=== PATIENT | male | born 1990 | race Caucasian/White ===

== ENCOUNTER 2018-02-19 06:31 | Day surgery (SDC) | payer MEDICARE ==
[~2018-02-19 06:31] MED LIST: Lactated Ringers 1,000 ML IV SCH; Sensorcaine 0.25% 10 ML ONE
[2018-02-19] MEDS ORDERED: Zemuron 100 MG/10 ML IJ ONE (06:32)
[2018-02-19] MEDS ORDERED: BRIDION 200MG/2ML IV ONE (06:32)
[2018-02-19] MEDS ORDERED: SUBLIMAZE 250 MCG/5 ML IV ONE (06:32)
[2018-02-19] MEDS ORDERED: Zofran 4 MG/2 ML VIAL IV ONE (06:32)
[2018-02-19] MEDS ORDERED: DIPRIVAN 200 MG/20 ML IV ONE (06:32)
[2018-02-19] MEDS ORDERED: Versed 2 MG/2 ML Injection IV ONE (06:32)
[2018-02-19] MEDS ORDERED: Quelicin Fliptop 200 MG/10 ML IJ ONE (06:32)
[2018-02-19] MEDS ORDERED: Lactated Ringers 1,000 ML IV ONE (06:46)
[2018-02-19] MEDS ORDERED: MEFOXIN 2 GM PREMIX** 2 GM/50 ML ML IV ONE (06:46)
[2018-02-19] MEDS ORDERED: MEFOXIN 2 GM PREMIX** 2 GM/50 ML ML IV SCH (07:00)
[2018-02-19] MEDS ORDERED: DILAUDID 2 MG INJECTION ONE (11:28)
[2018-02-19] MEDS ORDERED: SUBLIMAZE 100 MCG/2 ML ONE (11:33)
[2018-02-19 12:37] VITALS: BP 147/85; PULSE 70; O2SAT 95
--- NOTE | 2018-02-19 13:05 | OP ---
SURGERY DATE/TIME: 02/19/2018 0953 PREOPERATIVE DIAGNOSIS: Symptomatic cholelithiasis. POSTOPERATIVE DIAGNOSIS: Symptomatic cholelithiasis. PROCEDURE: Laparoscopic cholecystectomy. SURGEON: Dr. Roque. ANESTHESIA: General endotracheal tube. ESTIMATED BLOOD LOSS: Minimal. COMPLICATIONS: None. CONDITION: Stable. INDICATIONS: A patient with upper abdominal pain. Ultrasound positive. Seen and examined. The procedure discussed in detail. The patient is very interested. 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 He certainly is bound to have fairly treacherous case and he is aware of this. DESCRIPTION OF PROCEDURE AND FINDINGS: He is taken to surgery. General anesthetic, routine prep and drape. Veress needle left upper quadrant. 5 port in left upper quadrant. Adhesions in the midline taken down. The SLAG EXPANDER shunt identified. It was fairly small tubing. It was adhesed up with the omentum and adhesions and it was able to be visualized and it hung totally free down into the belly at the termination of the procedure. What was the most troubling was that the omentum actually swept over top of the liver and this required total mobilization and then the hepatic flexure was stuck up above the liver and this required total mobilization. After mobilizing 45 minutes to an hour of adhesion, the gallbladder upper edge was visible. At this time the fundus was picked up. Infundibulum inspected. Cystic duct defined. Cystic duct triply clipped. Cystic artery triply clipped. Gallbladder rolled out of gallbladder fossa. The gallbladder delivered through right upper quadrant port. A hole closure device was used. The field irrigated and suctioned and totally dry. The SLAG EXPANDER shunt was hanging down in the lower abdomen with no suspicion of any issue. The field of adhesiolysis totally dry. The hepatic flexure of the colon transected and totally satisfactory with no suggestion of any pending or impending issues. Skin closed with capri. Sterile dressing applied. The patient tolerated the procedure satisfactorily. Findings discussed with the family in the waiting room.
== END 2018-02-19 12:50 | disposition home or self-care (01) ==
LOC: SDC 06:31
PROVIDERS: ATTEND Surgery
DX: K80.20 Calculus of gallbladder without cholecystitis without obstruction (principal)
CPT/HCPCS: 88304; 94250; J0330; J0694; J1170; J2250; J2405; J2704; J3010

== ENCOUNTER 2019-02-13 17:08 | Emergency (ER) | payer MEDICARE ==
[2019-02-13 17:31] VITALS: O2SAT 97
[2019-02-13] MEDS ORDERED: XYLOCAINE 1% HCL 20 ML MDV IJ ONE (18:19)
[2019-02-13] MEDS ORDERED: Adacel Vial IM ONE ×2 (18:19→19:28)
--- NOTE | 2019-02-13 18:24 | ERPHSYRPT ---
- History of Present Illness Time Seen by Provider: 02/13/19 18:17 Source: patient Exam Limitations: no limitations Patient Subjective Stated Complaint: pt here for a catfish horn in left hand Triage Nursing Assessment: pt alert, walked in,resp easy, skin w/d/p. has catfish horm to left hand, no bleeding or swelling ntoed Physician History: 28-year-old white male arrives with complaint of a catfish bar stuck in his left hand since one hour prior to arrival. Patient states he was fishing and got a catfish bev stuck in his hand he was unable to pull it out. Past medical history includes left foot ulcer, spina bifida Past surgical history includes cholecystectomy stent in his head bladder surgery sohe can self catheterize. Occurred: just prior to arrival (one hour ago) Method of Injury: other (catfish bev embedded in right hand) Quality: constant Severity of Pain-Max: moderate Severity of Pain-Current: moderate (And) Extremities Pain Location: hand: left Modifying Factors: Improves With: nothing Associated Symptoms: none Allergies/Adverse Reactions: ciprofloxacin [From Cipro] Allergy (Verified 02/13/19 17:32) daptomycin [From Cubicin] Allergy (Verified 02/13/19 17:32) Latex, Natural Rubber Allergy (Verified 02/13/19 17:32) Hx Tetanus, Diphtheria Vaccination/Date Given: No Hx Influenza Vaccination/Date Given: No Hx Pneumococcal Vaccination/Date Given: No Immunizations Up to Date: Yes - Review of Systems Constitutional: No Fever, No Chills Eyes: No Symptoms Ears, Nose, & Throat: No Symptoms Respiratory: No Cough, No Dyspnea Cardiac: No Chest Pain, No Edema, No Syncope Abdominal/Gastrointestinal: No Abdominal Pain, No Nausea, No Vomiting, No Diarrhea Genitourinary Symptoms: No Dysuria Musculoskeletal: Other (catfish bev embedded in left hand) Skin: Other (catfish bev embedded in left hand), No Rash Neurological: No Dizziness, No Focal Weakness, No Sensory Changes Psychological: No Symptoms Endocrine: No Symptoms All Other Systems: Reviewed and Negative - Past Medical History Pertinent Past Medical History: Yes Other Medical History: ulcer in left foot, binafida - Past Surgical History Past Surgical History: Yes Gastrointestinal: Cholecystectomy Genitourinary: Other Other Surgical History: shunt placed in head, feet, bladder surgery to self cath - Social History Smoking Status: Never smoker Exposure to second hand smoke: Yes Drug Use: none Patient Lives Alone: No - Nursing Vital Signs Nursing Vital Signs: Initial Vital Signs Temperature 97.5 F 02/13/19 17:24 Pulse Rate 77 02/13/19 17:24 Respiratory Rate 18 02/13/19 17:24 Blood Pressure 152/95 02/13/19 17:24 O2 Sat by Pulse Oximetry 97 02/13/19 17:24 Pain Scale Pain Intensity 5 - Physical Exam General Appearance: mild distress, alert Eyes, Ears, Nose, Throat Exam: moist mucous membranes Neck Exam: non-tender, supple Cardiovascular/Respiratory Exam: chest non-tender, normal breath sounds, regular rate/rhythm, no respiratory distress Abdominal Exam: non-tender, No guarding Back Exam: normal inspection, No vertebral tenderness Shoulder Exam: normal inspection, no evidence of injury, normal ROM Elbow/Forearm Exam: normal inspection, non-tender, no evidence of injury, normal ROM Wrist Exam: normal inspection, non-tender, no evidence of injury, normal ROM Hand Exam: normal ROM, No normal inspection (lleft hand with catfish bev embedded in dorsal left handproximal to left thumb and forefinger) Neuro/Tendon Exam: normal sensation, normal motor functions Mental Status Exam: alert, oriented x 3, cooperative Skin Exam: other (catfish bev embedded in thenar eminence left hand) SpO2 Interpretation: normal (97%) SpO2: 97 Ordered Tests: Active Orders 24 hr Category Date Time Status Wound Care STAT Care 02/13/19 18:19 Active Medication Summary Discontinued Medications Generic Name Dose Route Start Last Admin Trade Name Freq PRN Reason Stop Dose Admin Diphtheria/Tetanus/Acell Pertussis 0.5 ml 02/13/19 18:19 02/13/19 19:31 Adacel Vial IM 02/13/19 18:20 0.5 ml .ONCE ONE Administration Diphtheria/Tetanus/Acell Pertussis Confirm 02/13/19 19:28 Adacel Vial Administered 02/13/19 19:29 Dose 0.5 ml IM .STK-MED ONE Lidocaine HCl 5 ml 02/13/19 18:19 02/13/19 19:33 Xylocaine 1% Hcl 20 Ml Mdv IJ 02/13/19 18:20 5 ml STAT ONE Administration Lidocaine HCl Confirm 02/13/19 19:28 Xylocaine 1% Hcl 20 Ml Mdv Administered 02/13/19 19:29 Dose 5 ml .ROUTE .STK-MED ONE - Progress Progress: improved Progress Note: 02/13/19 19:39 Removal of foreign body (catfish bev) Dorsal left hand. Left hand sterilely cleansed. 1% lidocaine used to anesthetize the area. Bev removed with curved hemostats. Forceps used to explore lesion no further foreign bodies noted. Area irrigated by the nurse. Bacitracin is applied. Patient's left hand neurovascular intact after removal. - Departure Departure Disposition: Home Clinical Impression: remove catfish bev left hand Condition: Fair Critical Care Time: No Referrals: REZA MCCORMICK [Primary Care Provider] - Additional Instructions: Return home. Keflex 500 mg orally 4 times a day x7 days. [facility] as needed for pain. Followup with your family doctor if signs of infection or problems. Return for acute distress severe symptoms or for any problems. Prescriptions: Hydrocodone/APAP 5-325 Tab^^^ [[facility] 5-325 Tablet^^^] 1 tab PO Q6HPRN PRN #10 tablet MDD 6 PRN Reason: Pain Cephalexin Mh 500 mg [Keflex 500 mg] 500 mg PO Q6H #28 capsule
[2019-02-13] MEDS ORDERED: XYLOCAINE 1% HCL 20 ML MDV ONE (19:28)
[2019-02-13] MEDS ORDERED: KEFLEX 500 MG PO ONE (19:47)
[2019-02-13] MEDS ORDERED: NORCO 5/325 MG PO ONE ×2 (19:48→20:04)
[2019-02-13] MEDS ORDERED: NORCO 5/325 MG ONE ×2 (19:58→20:05)
[2019-02-13] MEDS ORDERED: KEFLEX 500 MG ONE (19:58)
[2019-02-13 20:16] VITALS: BP 154/90; PULSE 73
== END 2019-02-13 20:15 | disposition home or self-care (01) ==
LOC: ED 17:08
DX: S60.552A Superficial foreign body of left hand, initial encounter (principal); W45.8XXA Other foreign body or object entering through skin, initial encounter; W22.8XXA Striking against or struck by other objects, initial encounter
CPT/HCPCS: 90471; 90715; 99284; A9270-GY